=== PATIENT | female | born 1935 | race American Indian/Alaskan Native ===

== ENCOUNTER 2021-01-30 13:44 | Emergency (ER) | payer MEDICARE ==
[2021-01-30] MEDS ORDERED: SODIUM BICARB 8.4% 50 MEQ/50 ML SYRINGE IV ONE (13:45)
[2021-01-30] MEDS ORDERED: DEXTROSE 50% IN WATER (25GM) 50 ML SYRINGE IV ONE (13:45)
[2021-01-30] MEDS ORDERED: EPINEPHrine 1 MG/10 ML SYRINGE ONE (13:45)
--- NOTE | 2021-01-30 14:00 | Emergency Department Report ---
HPI - General Time Seen by Provider: 01/30/21 13:55 - HPI HPI: This is an 85-year-old -[place] female who presents to the emergency department via EMS from home in cardiac arrest. Last known well time was at about 6 AM. Apparently the grandson came home at about 1 PM and found her unresponsive. Unknown if bystander CPR was initiated. EMS arrived and started ACLS protocol. The patient was intubated with a 7.0 endotracheal tube and was receiving bag valve ventilation. She was receiving chest compressions. A right lower extremity intraosseous line was placed and the patient had 4 doses of epinephrine and 1 of sodium bicarbonate in route. The patient remained in asystole the entire time. EMS says that the blood sugar checked in route was in the 300s. The patient arrived to bed #21 still pulseless and in asystole. ED Review of Systems ROS: Stated complaint: CARDIAC ARREST Other details as noted in HPI Comment: Unobtainable due to pts medical conditions Physical Exam - Physical Exam Physical Exam: GENERAL: Patient is ill-appearing and unresponsive. HENT: Normocephalic. Atraumatic. Endotracheal tube in place with blood seen in the endotracheal tube. EYES: Pupils are fixed and dilated. NECK: Supple. Trachea appears midline. CHEST/LUNGS: There are no spontaneous respirations. HEART/CARDIOVASCULAR: There are no spontaneous heart sounds. ABDOMEN: Abdomen is soft. There is no abdominal distention. SKIN: Skin is cool but dry. NEURO: Unresponsive. Does not withdraw to painful stimuli. Does not follow any commands. MUSCULOSKELETAL: There is no obvious deformity. There is no evidence of acute injury. No palpable femoral or radial pulses. ED Medical Decision Making - Medical Decision Making This patient presents in cardiac arrest. Last known well time was about 6 AM. The patient was found at about 1 PM unresponsive. EMS was called and found the patient pulseless and in asystole. ACLS protocol was initiated including intubation with bag valve ventilation, chest compressions, intraosseous line placed and ACLS meds given. The patient had 4 rounds of epinephrine and 1 dose of sodium bicarbonate in route without ROSC and remained in asystole. She presented to bed #21 where she was moved over to our rney and we continued ACLS protocol. The patient was still in asystole. We did a further 3 rounds of ACLS protocol including 3 doses of epinephrine, 1 of sodium bicarbonate, 1 dose of calcium. We did another Accu-Chek and the patient's blood sugar was at 52 so an amp of D50 was given. At this point, the patient has received 7 doses of epinephrine, has been receiving ACLS protocol for at least 45 minutes, and she has remained in asystole. Time of was called at 1352. Critical Care Time: Yes Critical care time in (mins) excluding proc time.: 20 Critical care attestation.: If time is entered above; I have spent that time in minutes in the direct care of this critically ill patient, excluding procedure time. Critical care time was spent on this patient in doing her initial evaluation, supervision of ACLS protocol, discussion of the expiration with the patient's daughter. Critical Care Time: 20 minutes ED Disposition Clinical Impression: Cardiac arrest Disposition: DC-20 Is pt being admited?: No Time of Disposition: 15:57
== END 2021-01-30 14:30 ==
LOC: ED 13:44
DX: I46.9 Cardiac arrest, cause unspecified (principal)
CPT/HCPCS: 82962; 99285; J0171